=== PATIENT | female | born 1960 | race Caucasian/White ===

== ENCOUNTER → 2017-02-09 | Outpatient (CLI) | payer BC ==
--- NOTE | 2017-02-09 12:49 | RAD ---
EXAM DESCRIPTION: Pelvis CLINICAL HISTORY: 56 years Female, RT HIP PAIN COMPARISON: None. FINDINGS: The bony pelvis is intact very minimal degenerative change involving the right hip and slightly greater sclerosis and degenerative change involving the left acetabular roof and acetabular margin. No fracture or dislocation or osteonecrosis is seen. IMPRESSION: Mild degenerative changes, predominantly in the left hip. Electronically signed by: Sean Aguero MD 02/09/2017 12:49 PM CDT
--- NOTE | 2017-02-09 12:49 | RAD ---
EXAM DESCRIPTION: Knee,Right Complete CLINICAL HISTORY: 56 years, Female, KNEE PAIN COMPARISON: None TECHNIQUE: Four views of the right knee FINDINGS: Advanced degenerative changes predominantly in the medial joint compartment with subchondral sclerosis flattening of the articular surfaces marginal osteophytes and narrowing of the joint space is present with a modest joint effusion. Milder patellofemoral degenerative arthropathy is present with relative sparing of the lateral joint compartment. No fracture or deformity is seen. IMPRESSION: 1. Advanced degenerative changes of the right knee particularly medial joint compartment. Electronically signed by: Sean Aguero MD 02/09/2017 12:48 PM CDT
== END | disposition home or self-care (01) ==
LOC: RAD 08:14
PROVIDERS: ATTEND Orthopaedic Surgery
DX: M25.561 Pain in right knee (principal); M25.551 Pain in right hip

== ENCOUNTER 2017-04-05 06:15 | Inpatient (IN) | payer BC ==
--- NOTE | 2017-03-25 08:48 | HP ---
CHIEF COMPLAINT: Right knee pain. HISTORY OF PRESENT ILLNESS: Ms. Ravi is a 56-year-old female with a history of severe knee pain that has been getting progressively worse for years. She says it is most prominent along the medial aspect, but is bothering her diffusely about the knee and causes her difficulty with stairs as well as daily activities. She has had arthroscopy as well as injections, however, these are failing to give any relief. As such, she has requested operative intervention. After discussing the risks, benefits and alternatives to operative therapy, the patient has given informed consent for TNKase. PAST SURGICAL HISTORY: 1. Knee arthroscopy. 2. Wrist surgery. MEDICATIONS: 1. Estradiol. ALLERGIES: NO KNOWN DRUG ALLERGIES. CODE STATUS: Full code. IMMUNIZATIONS: Up to date. SOCIAL HISTORY: The patient does not drink, smoke or use any illicit drugs. FAMILY HISTORY: None pertinent to today's complaint. REVIEW OF SYSTEMS: Negative except as indicated in the History of Present Illness. PHYSICAL EXAMINATION: VITAL SIGNS: Blood pressure 192/94. Pulse 75. Height 5'1". Weight 140. MENTAL STATUS: The patient is awake, alert, and is able to give a good history and participate in the physical. The patient is oriented to person, place and time. SKIN: Normal tone and turgor. HEENT: Normocephalic, atraumatic. Pupils equal, round and reactive. Mucosal membranes are moist. NECK: Normal range of motion. No thyromegaly, no lymphadenopathy. CHEST: Normal respiratory excursion. CARDIAC: Regular rate and rhythm. No murmurs, rubs or gallops. MUSCULOSKELETAL: The bilateral upper extremities show full active range of motion without pain. She has intact sensation in the extremities and they are warm and well perfused. She has no deformity and no crepitus. Strength is 5/ 5. The left lower extremity shows full range of motion of the hip and some pain with range of motion of the knee, but minimal. Sensation is intact throughout the extremity and it is warm and well perfused. She has no varus/ valgus or anterior/posterior laxity. The right lower extremity shows no significant pain with range of motion of the hip. She has full extension of the knee and flexion to about 125 degrees. She has no varus/valgus or anterior/ posterior laxity although she does have a slight varus deformity. Sensation is intact throughout. It is warm and well perfused. IMAGING: X-rays show advanced arthritis with varus deformity. ASSESSMENT: 1. Osteoarthritis. PLAN: The plan at this point is for total knee arthroplasty. We have discussed the risks, benefits, and alternatives to that and the patient has given informed consent. [facility][id number] [facility]
--- NOTE | 2017-03-25 10:00 | RAD ---
EXAM DESCRIPTION: XR CHEST 2 VIEWS CLINICAL HISTORY: Preoperative respiratory evaluation. Z01.811 COMPARISON: None TECHNIQUE: PA/lateral FINDINGS: Heart size is normal. The lungs are clear. No acute bony abnormality. IMPRESSION: No acute cardiopulmonary process. Electronically signed by: Sean Joaquin MD 03/25/2017 9:59 AM CDT
[~2017-04-05 06:15] MED LIST: ceFAZolin SODIUM 1 GM in SODIUM CHL 0.9% 50ML MIN-BAG+ 50 ML IVPB SCH
[2017-04-05] MEDS ORDERED: NALOXONE HCL INJ 0.4 MG/ML VIAL IV PRN (06:47)
[2017-04-05] MEDS ORDERED: ALUMINUM & MAGNESIUM HYDROXIDE 30 ML UD PO PRN (06:47)
[2017-04-05] MEDS ORDERED: HYDROcodone 10MG/APAP 325MG 1 EA TAB PO PRN (06:47)
[2017-04-05] MEDS ORDERED: BISACODYL SUPPOSITORY 10 MG PR PRN (06:47)
[2017-04-05] MEDS ORDERED: ACETAMINOPHEN 325 MG TAB PO PRN (06:47)
[2017-04-05] MEDS ORDERED: ACETAMINOPHEN 500 MG TAB PO PRN (06:47)
[2017-04-05] MEDS ORDERED: MORPHINE SULFATE INJ 10 MG/ML VIAL IV PRN (06:47)
[2017-04-05] MEDS ORDERED: MAGNESIUM HYDROXIDE 30 ML UD PO PRN (06:47)
[2017-04-05] MEDS ORDERED: TRANEXAMIC ACID INJ 1,000 MG in SODIUM CHLORIDE 0.9% 100ML 100 ML IVPB ONE (06:47)
[2017-04-05] MEDS ORDERED: HYDROcodone 5MG/APAP 325MG 1 EA TAB PO PRN (06:47)
[2017-04-05] MEDS ORDERED: PROMETHAZINE HCL INJ 12.5 MG in SODIUM CHLORIDE 0.9% 50ML 50 ML IVPB PRN (06:47)
[2017-04-05] MEDS ORDERED: PROMETHAZINE HCL INJ 25 MG in SODIUM CHLORIDE 0.9% 50ML 50 ML IVPB PRN (06:47)
[2017-04-05] MEDS ORDERED: SODIUM CHLORIDE 0.9% (FLUSH) 10 ML SYG IV PRN (06:47)
[2017-04-05] MEDS ORDERED: MORPHINE SULFATE INJ 10 MG/ML VIAL IM PRN (06:47)
[2017-04-05] MEDS ORDERED: TEMAZEPAM 15 MG CAP PO PRN (06:47)
[2017-04-05] MEDS ORDERED: ZOLPIDEM TARTRATE 5 MG TAB PO PRN (06:47)
[2017-04-05] MEDS ORDERED: CYCLOBENZAPRINE HCL 10 MG TAB PO PRN (06:47)
[2017-04-05] MEDS ORDERED: BENZOCAINE-MENTH LOZ (CEPACOL) 1 EA LOZ MT PRN (06:47)
[2017-04-05] MEDS ORDERED: DEX 5% W/NACL 0.45% 1000ML 1,000 ML IVS PRN (06:47)
[2017-04-05] MEDS ORDERED: MORPHINE PCA 1 MG/ML 100ML 1 BAG in PREMIX BAG 1 BAG IVPB SCH (07:00)
[2017-04-05] MEDS ORDERED: IV SET AND CAP CHANGE INJ INJ SCH (07:00)
[2017-04-05] MEDS ORDERED: SODIUM CHL 0.9% 100ML MINI-BAG 100 ML IVPB ONE (07:17)
[2017-04-05] MEDS ORDERED: TRANEXAMIC ACID 1,000 MG/10 ML VIAL ONE ×2 (07:17→07:20)
[2017-04-05] MEDS ORDERED: LACTATED RINGERS 1,000 ML ONE ×2 (07:17→12:32)
[2017-04-05] MEDS ORDERED: SODIUM CHLORIDE 0.9% 100ML 100 ML IVPB ONE (07:18)
[2017-04-05] MEDS ORDERED: ceFAZolin SODIUM 1 GM VIAL ONE ×3 (07:18→15:55)
[2017-04-05] MEDS ORDERED: VANCOMYCIN HCL INJ 1,000 MG VIAL IVPB ONE ×3 (07:18→20:11)
[2017-04-05] MEDS ORDERED: SODIUM CHLORIDE 0.9% 250ML 0 ML ONE (07:18)
[2017-04-05] MEDS ORDERED: ACETAMINOPHEN IV 1000MG 100 ML ONE (09:38)
[2017-04-05] MEDS ORDERED: fentaNYL CITRATE INJ 50 MCG/ML AMP ONE (09:39)
[2017-04-05] MEDS ORDERED: MORPHINE SULFATE *EPIDURAL* 0.5 MG/ML VIAL ONE (09:39)
[2017-04-05] MEDS ORDERED: MIDAZOLAM INJ 5 MG/5 ML VIAL ONE (09:39)
[2017-04-05] MEDS: ceFAZolin SODIUM 1 GM VIAL ONE ×2 (10:46→11:31)
[2017-04-05] MEDS: BUPIVACAINE 0.25% W/EPI 50 ML VIAL INJ ONE ×2 (10:46→12:00)
[2017-04-05] MEDS: VANCOMYCIN HCL INJ 1,000 MG VIAL IVPB ONE ×2 (10:46→11:31)
[2017-04-05] MEDS ORDERED: raNITIdine HCL INJ 25 MG/ML VIAL IV ONE (12:00)
[2017-04-05] MEDS ORDERED: PROPOFOL 200 MG/20 ML VIAL IV ONE (12:00)
[2017-04-05] MEDS ORDERED: LIDOCAINE 1% 10 ML VIAL INJ ONE (12:00)
[2017-04-05] MEDS ORDERED: METOCLOPRAMIDE HCL INJ 10 MG/2 ML VIAL IV ONE (12:00)
[2017-04-05] MEDS ORDERED: DEXAMETHASONE INJ 10 MG/ML VIAL IV ONE (12:00)
[2017-04-05] MEDS ORDERED: MORPHINE PCA 1 MG/ML 100 ML BAG IVPB ONE (12:27)
[2017-04-05] MEDS: ONDANSETRON INJ 4 MG/2 ML VIAL IV PRN ×2 (14:19→17:58)
--- NOTE | 2017-04-05 14:49 | RAD ---
EXAM DESCRIPTION: Knee,Right 2 or More Views CLINICAL HISTORY: TKA COMPARISON: February 09, 2017 IMPRESSION: 2 views of the right knee show interval postsurgical changes from knee arthroplasty with cement fixation of tibial and femoral components. Soft tissue emphysema from recent surgery is seen. No complicating features are identified. Electronically signed by: Lambert Jean MD 04/05/2017 2:48 PM CDT
[2017-04-05] MEDS: diphenhydrAMINE HCL 50 MG/ML VIAL IV PRN ×2 (14:58→23:01)
[2017-04-05] MEDS ORDERED: SODIUM CHL 0.9% 50ML MIN-BAG+ 50 ML IVPB ONE (15:55)
[2017-04-05] MEDS ORDERED: ceFAZolin SODIUM 1 GM in SODIUM CHL 0.9% 50ML MIN-BAG+ 50 ML IVPB SCH (16:00)
[2017-04-05] MEDS ORDERED: traMADol HCL 50 MG TAB PO PRN (16:24)
[2017-04-05] MEDS ORDERED: IBUPROFEN 200 MG TAB PO PRN (16:27)
[2017-04-05] MEDS ORDERED: SODIUM CHLORIDE 0.9% 250ML 250 ML ONE ×2 (17:55→20:11)
[2017-04-05] MEDS ORDERED: PANTOPRAZOLE SODIUM IV 40 MG VIAL IV SCH (18:30)
--- NOTE | 2017-04-05 18:33 | CONS ---
SUPERVISING PHYSICIAN: Sean Marquez M.D. CHIEF COMPLAINT: Right knee pain. HISTORY OF PRESENT ILLNESS: This is a 56 year-old female patient who has a history of severe right knee pain that has progressively worsened for years. It has been causing her difficulty in her daily activities as well as causing numerous falls. She has had an arthroscopy of this knee as well as some injections and conservative measures have failed to give her any relief. She had given Dr. Kirk Ledesma, orthopedic surgeon, consent to do right total knee arthroplasty and I am seeing her postoperative after right TKA. PAST MEDICAL HISTORY: 1. Gastroesophageal reflux disease. PAST SURGICAL HISTORY: 1. Right knee arthroscopy. 2. Wrist surgery. 3. Appendectomy. 4. Hysterectomy. 5. Breast augmentation in 1979. OUTPATIENT MEDICATIONS: 1. Estradiol. ALLERGIES: NO KNOWN DRUG ALLERGIES. SOCIAL HISTORY: She lives outside of [place]. She is . She has 2 sons. She quit smoking cigarettes about 16 months ago. She denies any ETOH or illicit drug use. REVIEW OF SYSTEMS: Denies weight change, fever or fatigue. HEENT: Denies sinus symptoms, ear pain, vision changes or sore throat. RESPIRATORY: Denies coughing, wheezing or shortness of breath. CARDIAC: Denies chest pain, palpitations or tachycardia. GASTROINTESTINAL: Complains of some mild nausea, otherwise denies any abdominal pain, constipation or diarrhea. EXTREMITIES: As per History of Present Illness. GENITOURINARY: Denies hematuria, dysuria or polyuria. NEUROLOGIC: Denies dizziness, headaches or seizures. PHYSICAL EXAMINATION: VITAL SIGNS: She is afebrile, heart rate 62, blood pressure 160/81, respiratory rate 13, O2 sat is 98% on 2 liters nasal cannula. GENERAL: This is a 56 year-old female patient who is lying in her hospital bed. She is in no acute distress. HEENT: Normocephalic and atraumatic. Pupils are equal and reactive. Oropharynx is clear. Oral mucous membranes are moist. NECK: Supple without mass. CHEST: Clear to auscultation bilaterally. There is equal rise and fall of the chest with inspiration and expiration. HEART: Regular rate and rhythm. ABDOMEN: Soft, nondistended, non-tender. Bowel sounds are positive. EXTREMITIES: Bilateral pedal pulses are palpable at +2. There is an Iceman in place to the right knee. There is no cyanosis or edema. NEUROLOGIC: She is awake, alert and oriented times three. LABORATORY: WBCs 6.6, hemoglobin 15, hematocrit 45.2, platelets 187. Sodium 144, potassium 4.1, chloride 108, carbon dioxide 29, BUN 16, creatinine 0.86, glucose 94, calcium 9.3. RADIOLOGY: Films are per the EMR. All other labs and films have been reviewed via the EMR. IMPRESSION: 1. Osteoarthritis of the right knee status post right total knee arthroplasty per Dr. Kirk Ledesma, orthopedic surgeon, postoperative day zero. 2. Post menopausal hormone deficiency. 3. Gastroesophageal reflux disease. PLAN: We will continue present supportive care. I have restarted her home medications. I have also given her some Protonix for ulcer prophylaxis. She will begin physical therapy for strengthening and conditioning tomorrow with Physical Therapy. Orthopedic issues will be per Dr. Ledesma. We will continue to monitor closely and follow as needed. Dr. Marquez is the collaborating physician and available for consultation. #[id number] [facility]
[2017-04-05] MEDS: MAGNESIUM OXIDE 400 MG TAB PO SCH (19:52)
[2017-04-05] MEDS ORDERED: DOCUSATE CALCIUM 240 MG CAP PO SCH (21:00)
[2017-04-05] MEDS: VANCOMYCIN HCL INJ 1,000 MG in SODIUM CHLORIDE 0.9% 250ML 250 ML IVPB SCH (21:18)
[2017-04-06] MEDS: ENOXAPARIN SODIUM 30 MG/0.3 ML SYG SUBCU SCH ×2 (01:13→12:54)
[2017-04-06] MEDS ORDERED: ceFAZolin SODIUM 1 GM VIAL ONE (03:33)
[2017-04-06] MEDS ORDERED: SODIUM CHL 0.9% 50ML MIN-BAG+ 50 ML IVPB ONE (03:34)
[2017-04-06] MEDS: diphenhydrAMINE HCL 50 MG/ML VIAL IV PRN (04:27)
[2017-04-06] MEDS ORDERED: VANCOMYCIN HCL INJ 1,000 MG VIAL IVPB ONE (08:14)
[2017-04-06] MEDS ORDERED: SODIUM CHLORIDE 0.9% 250ML 250 ML ONE (08:14)
[2017-04-06] MEDS: VANCOMYCIN HCL INJ 1,000 MG in SODIUM CHLORIDE 0.9% 250ML 250 ML IVPB SCH (08:23)
[2017-04-06] MEDS: MAGNESIUM OXIDE 400 MG TAB PO SCH (08:23)
--- NOTE | 2017-04-06 08:29 | PN ---
DATE: 04/05/17 SUBJECTIVE: Makenna is doing very well and her pain is well controlled. OBJECTIVE: Afebrile. Vital signs stable. Dressing is clean, dry, and intact. ASSESSMENT: Status post total knee arthroplasty. PLAN: The plan is begin weight-bearing as tolerated on postoperative day 1. [id number]
--- NOTE | 2017-04-06 08:31 | PN ---
DATE: 04/06/17 SUBJECTIVE: She is doing really well today and is wanting to get out of bed. OBJECTIVE: Afebrile. Vital signs stable. Dressing is clean, dry, and intact. ASSESSMENT: Status post total knee arthroplasty. PLAN: This morning, I actually walked her greater than 150 feet. She is doing extremely well and walking heel to toe and putting full weight-bearing on the knee. As such, I think she would be a candidate for discharge today. We are going to have her work with physical therapy today before she goes and she will followup with me for dressing change tomorrow. #[id number]/ [facility]TDD
--- NOTE | 2017-04-06 08:41 | OP ---
DATE OF PROCEDURE: 04/05/17 PREOPERATIVE DIAGNOSIS: 1. Osteoarthritis of the knee. POSTOPERATIVE DIAGNOSIS: 1. Osteoarthritis of the knee. PROCEDURE: 1. Total knee arthroplasty. SURGEON: Kirk Ledesma MD. MACHINE ENGRAVER: Eduardo Gonzalez CST, SA-C. ANESTHESIA: General. COMPLICATIONS: None. FINDINGS: Severe arthritis of the knee. INDICATION: Ms. Ravi has a history of severe knee pain that has been getting progressively worse. She has had pain that has been refractory to conservative measures. Because of the ongoing pain, she has requested operative intervention. After discussing the risks, benefits and alternatives to operative intervention, the patient has given informed consent for total knee arthroplasty. PROCEDURE: The patient was brought to the Operating Room and placed in supine position. General anesthesia was induced and the patient's leg was sterilely prepped and draped. Following prepping and draping, the distal femur was exposed and using an intramedullary guide, the distal femoral cut was made. The appropriate sized cutting block was measured, pinned into place, and the anterior, posterior, and chamfer cuts were made. The ACL was transected and the tibia was subluxed. Both the medial and lateral menisci were removed. An intramedullary guide was used to make the proximal tibial cut. The appropriate sized base plate was placed and a trial polyethylene was placed. The trial femur was placed, the knee was reduced, and the knee was taken through a range of motion. The knee was stable in anterior, posterior, varus and valgus stress. The patella tracked anatomically without evidence of subluxation or dislocation. After trialing, the trial components were removed and the bony surfaces were thoroughly irrigated with saline. Following irrigation, the surfaces were dried and the final components were cemented into place. The excess cement was removed and the remaining cement was allowed to cure. The knee was again taken through a range of motion to confirm stability. The wound was then irrigated with saline and closure was performed using PDS to approximate the arthrotomy followed by closure of the subcutaneous tissues with a combination of running and interrupted Monocryl sutures. Sterile dressing was placed. The patient was awoken from anesthesia and taken to Recovery. POSTOPERATIVE INSTRUCTIONS: The patient will be weight-bearing as tolerated on postoperative day 1. COMPONENTS: [employer] knee, size 4 femur, size 4 tibia, 9 mm insert. #[id number] [facility]
[2017-04-06] MEDS ORDERED: ESTRADIOL TAB 1 MG PO SCH (09:00)
[2017-04-06 14:07] VITALS: BP 148/73; TEMP 98.6; O2SAT 97
[2017-04-07] MEDS ORDERED: SODIUM CHLORIDE 0.9% (FLUSH) 10 ML SYG IV SCH (09:00)
--- NOTE | 2017-04-07 10:08 | DS ---
SUPERVISING PHYSICIAN: Sean Marquez MD DISCHARGE DIAGNOSIS: 1. Osteoarthritis of the right knee status post right total knee arthroplasty per Dr. Kirk Ledesma, orthopedic surgeon, postoperative day 1. 2. Post menopausal hormone deficiency. 3. Gastroesophageal reflux disease. HISTORY OF PRESENT ILLNESS: This is a 56 year-old female patient who has a history of severe right knee pain that has progressively worsened for years. It has been causing her difficulty in her daily activities as well as causing numerous falls. She has had an arthroscopy of this knee as well as some injections and conservative measures have failed to give her any relief. She had given Dr. Kirk Ledesma, orthopedic surgeon, consent to do right total knee arthroplasty. HOSPITAL COURSE: Her surgery proceeded without any problems or complications. Postoperatively, she had minimal pain. Her home medications were restarted. Overnight, she had no problems and this morning, she ambulated down both hallways with Dr. Ledesma and physical therapy without any problems. She has asked to be discharged home. Her vital signs have been stable. Her medications were resumed. Her Rendon catheter was discontinued and she will be discharged home today. DISCHARGE PLAN: The patient will be discharged home in stable condition. She is to resume her previous diet as well as her previous medications. She will followup with Dr. Nish Peña, her primary care physician in [place], within the next two weeks. She also has an appointment with Dr. Kirk Ledesma for followup on 04/21/17 at 9 AM. She is going to have physical [facility]. She is to return to the hospital or followup with Dr. Peña or Dr. Ledesma for any further complications or problems. DISCHARGE MEDICATIONS: 1. Estradiol. 2. Cyclobenzaprine. 3. Xarelto times [address] Marquez is the collaborating physician and available for consultation. #[id number] [facility]
[2017-04-08] MEDS ORDERED: BISACODYL SUPPOSITORY 10 MG PR ONE (21:00)
[2017-04-08] MEDS ORDERED: MAGNESIUM HYDROXIDE 30 ML UD PO ONE (21:00)
== END 2017-04-06 16:00 | disposition home or self-care (01) | DRG 470 ==
LOC: AMB 06:15 → MS 13:15
PROVIDERS: ADMIT Orthopaedic Surgery; ATTEND Nurse Practitioner Acute Care
PROC: 0SRC0J9 Replacement of Right Knee Joint with Synthetic Substitute, Cemented, Open Approach (ICD-10-PCS; principal; 2017-04-05 10:01)
DX: M17.11 Unilateral primary osteoarthritis, right knee (principal); K21.9 Gastro-esophageal reflux disease without esophagitis; Z79.899 Other long term (current) drug therapy; Z87.891 Personal history of nicotine dependence; Z79.890 Hormone replacement therapy